=== PATIENT | male | born 1990 | race African-American/Black ===

== ENCOUNTER 2021-04-09 14:31 | Emergency (ER) | payer MEDICAID ==
[~2021-04-09] VITALS: Ht 167.6 cm; Wt 95.0 kg
[2021-04-09] MEDS ORDERED: MORPHINE SULFATE 10 MG/ML CPJ IV ONE (15:30)
[2021-04-09 17:03] LABS: BASOPHILS % 0.5 % (0.0-2.0); EOSINOPHILS % 0.1 % (0.0-5.0); HEMATOCRIT. 39.6 % (42.0-52.0); HEMOGLOBIN. 13.7 g/dL (14.0-18.0); LYMPHOCYTES % 12.3 % (20.0-50.0); MEAN CORPUSCULAR HEMOGLOBIN 29.7 pg (28.0-32.0); MEAN CORPUSCULAR VOLUME 85.9 fL (80.0-94.0); MEAN PLATELET VOLUME 7.3 fl (7.4-10.4); MONOCYTES % 3.3 % (2.0-8.0); NEUTROPHILS % 83.8 % (40.0-76.0); PLATELET 328 x1000/uL (130-400); RED CELL DISTRIBUTION WIDTH 14.1 % (11.6-14.6)
[2021-04-09 17:07] LABS: CHLORIDE 110 mEq/L (98-107)
[2021-04-09] MEDS ORDERED: HALOPERIDOL LACTATE 5MG/ML VIAL IM NR (17:15)
[2021-04-09 17:55] VITALS: BP 113/76
== END 2021-04-09 18:35 | disposition home or self-care (01) ==
LOC: ER 14:31
DX: R10.13 Epigastric pain (principal); R11.2 Nausea with vomiting, unspecified; R03.0 Elevated blood-pressure reading, without diagnosis of hypertension; F12.90 Cannabis use, unspecified, uncomplicated
CPT/HCPCS: 36415; 74176; 80048; 80076; 83690; 85025; 93005; 96372; 99285; J1630